=== PATIENT | male | born 1960 | race Caucasian/White ===

== ENCOUNTER 2017-02-01 21:06 | Emergency (ER) | payer OTHER ==
[~2017-02-01] VITALS: Ht 180.3 cm; Wt 93.0 kg
[2017-02-01] MEDS ORDERED: ALLEGRA ALLERG180 MG PO (21:15)
[2017-02-01] MEDS ORDERED: PREVACID 30MG C30 M1 PO (21:16)
[2017-02-01] MEDS ORDERED: LEXAPRO 10 MG T10 MG PO (21:16)
[2017-02-01] MEDS ORDERED: LISINOPRIL10 MG PO (21:16)
[2017-02-01 21:50] LABS: HEMOGLOBIN 15.5 g/dL (14.1-18.0); LYMPH # 2.5 K/mm3 (0.7-4.5); LYMPH % 32.4 % (10-50)
[2017-02-01 22:09] LABS: BUN 13 mg/dL (7-18)
[2017-02-01 22:11] LABS: GFR (ESTIMATED) 69 ML/MIN (>60)
--- NOTE | 2017-02-02 00:37 | Emergency Room Report ---
History of Present Illness Time Seen by [id number] Presenting Problem in Triage Pt arrived:Walked Presenting Problem:C/O EPIGASTRIC PAIN AFTER EATING SUPPER. 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 N Clinical Suspician of Infection? N Mental Status: 1 - Regular (Normal Baseline) Sepsis Risk:Low Sepsis Risk Have you (or family members/close friends) recently traveled outside the [place]? N If Yes, where/when: Have you had exposure to infectious disease within the past month? N TB? Other? Specify: Comment The patient complains of epigastric and chest pain that started after eating at about 8 PM. He has vomited twice. Pain is currently 5/10, it has improved, initially it was 8/10. No radiation. No diarrhea. No fever. He did get sweaty. He says he had the same pain a couple of weeks ago at night he walked around and burped several times and it went away after a couple of hours. He says that years ago he had his gallbladder tested and it sounds as if he had a HIDA scan that showed a poorly functioning gallbladder, but CCK apparently did not cause pain and it was not felt that he needed any treatment. He did not have gallstones. He has a hx of gastroesophageal reflux disease and he takes Prevacid , last taken in the morning. ALLERGIES Coded Allergies: No Known Allergies (02/01/17) Home Medications Reported Medications FEXOFENADINE HCL (Val Allergy) 180 MG PO DAILY Lansoprazole (Prevacid) 30 MG PO DAILY Escitalopram Oxalate (Lexapro 10MG) 10 MG PO DAILY Lisinopril 10 MG PO DAILY History Medical History General CAD? No Angina: No UT: No Hypertension? Yes Hyperlipidemia? No CHF? No DVT? No PE? No COPD? No Asthma? No Anemia? No GERD? Yes Gastric ulcers? No GI Bleed? No Hernia? No Thyroid Problems? No Hypothyroidism? No CVA? No Seizures? No Diabetes? No Renal Insuffiency? No End Stage Renal Disease? No UTI? No Stones? No BPH? No GB Disease: No Nephritic Syndrome? No Asplenia? No Hepatitis? No Sickle Cell Disease? No Arthritis? No Migraines? No Cataracts? No Glaucoma? No MRSA? No HIV? No TB? No Anxiety? Yes Depression? No Cancer? No More? No Immunization Hx DT/Tetanus Unknown Surgical Hx Previous Surgery?N Social History Smoking Hx Smoker: Never Smoker Tobacco: No Alcohol Alcohol: No Review of Systems All Other Systems Reviewed and Negative Constitutional diaphoresis, denies fever Respiratory denies shortness of breath Cardiovascular chest pain Gastrointestinal abdominal pain, denies diarrhea, vomiting Physical Exam Vital Signs Vital Signs Date Time Temp Pulse Resp B/P Pulse O2 O2 Flow FiO2 Ox Delivery Rate 02/02 0315 97.8 54 18 164/90 91 08/02 0248 97.8 54 18 164/90 91 / 0203 97.8 67 18 169/99 95 /02 0202 18 / 0112 97.8 54 18 137/69 95 /02 0106 18 08/02 0049 56 20 156/94 100 08/01 2350 60 20 161/92 99 08/01 2300 97.8 54 20 175/99 98 08/01 2256 56 20 187/70 97 08/01 2131 97.8 63 24 196/49 100 08/01 2108 97.8 63 24 191/116 100 General Appearance normal appearance, WD/WN Eye Exam - bilateral eye normal exam, bilateral eye PERRL, bilateral eye EOMI Ear, Nose, Throat hearing grossly normal, normal ENT inspection Neck normal inspection, non-tender, supple, full range of motion Respiratory Status Yes: trachea midline, chest symmetrical, non tender chest. No: respiratory distress. Lung Sounds bilateral: normal breath sounds, lungs clear. Cardiovascular normal exam, regular rate/rhythm, no peripheral edema, no gallop, no JVD, no murmur, no rub, normal peripheral pulses Peripheral Pulses Pulses normal Yes Gastrointestinal normal bowel sounds, soft, no organomegaly, no pulsatile mass, no guarding, no rebound, tenderness (epigastric) Extremities non-tender, normal range of motion, normal inspection Neurologic alert, hammer repairer II-XII nml as tested, normal exam, oriented x 3 Mental status normal mood/affect Skin intact, normal color, warm/dry Medical Decision Making LABS/Meds/Orders Pt receiving controlled substance in ED? Yes John was queried for this patient? No Reason not queried - emergent pt cond=no time Results/Orders Laboratory Tests 02/02/17 0016: Troponin I < 0.02 02/01/170: Sodium 141, Potassium 3.3 L, Chloride 103, Carbon Dioxide 31, BUN 13, Creatinine 1.1, Estimated Creat Clear 97, Estimated GFR (MDRD) 69, Glucose 91, Calcium 9.7, Total Bilirubin 0.4, AST 37, ALT 34, Alkaline Phosphatase 59, Creatine Kinase 103, CK-MB (CK-2) Rel Index 0.5, CK and CKMB Interp < 0.5, Troponin I < 0.02, Total Protein 8.0, Albumin 4.3, Globulin 3.7 H, Albumin/ Globulin Ratio 1.2, Amylase 98, Lipase 306, WBC 7.7, RBC 4.97, Hgb 15.5, Hct 45.5, MCV 91.6, RDW 13.0, Plt Count 240, MPV 7.3 L, Gran % 60.2, Gran # 4.7, Lymphocytes % 32.4, Monocytes % 5.6, Eosinophils % 1.6, Basophils % 0.2, Lymphocytes # 2.5, Monocytes # 0.4, Eosinophils # 0.1, Basophils # 0.0, PUBS MCHC 34.1, MCH 31.2 02/01/175: WBC Cancelled, RBC Cancelled, Hgb Cancelled, Hct Cancelled, MCV Cancelled, RDW Cancelled, Plt Count Cancelled, MPV Cancelled, Gran % Cancelled, Gran # Cancelled, Lymphocytes % Cancelled, Monocytes % Cancelled, Eosinophils % Cancelled, Basophils % Cancelled, Lymphocytes # Cancelled, Monocytes # Cancelled , Eosinophils # Cancelled, Basophils # Cancelled, PUBS MCHC Cancelled, MCH Cancelled Current Medication Orders Sig/Tonia Start time Last Medication Dose Route Stop Time Status Admin Iopamidol 75 ML ONCE ONE 02/02 200 DCD 02/02 IV 02/02 201 015 Morphine Sulfate 4 MG ONCE ONE 02/02 200 DC 02/02 IV 02/02 201 020 Sodium Chloride 10 ML ONCE ONE 02/02 200 DCD 02/02 IV 02/02 201 0156 Morphine Sulfate 0 .STK-MED ONE 02/02 159 DC .ROUTE Famotidine 0 .STK-MED ONE 02/02 105 DC IV Multi-Ingredient GI 0 .STK-MED ONE 02/02 105 DC Drug PO Sodium Chloride 0 .STK-MED ONE 02/02 105 DC IV Morphine Sulfate 0 .STK-MED ONE 02/03 104 DC .ROUTE Famotidine 20 MG ONCE ONE 02/025 DC 02/02 IV 02/02 46 0105 Morphine Sulfate 4 MG ONCE ONE 02/02 45 DC 02/02 IV 02/02 46 010 Multi-Ingredient GI 60 ML ONCE ONE 02/02 45 DC 02/02 Drug PO 02/02 46 0105 Sodium Chloride 8 ML ONCE ONE 02/02 45 DC 02/02 IV 02/02 46 010 Ondansetron HCl 4 MG ONCE ONE 02/01 2300 DC 02/01 IV 02/01 Ondansetron HCl 0 .STK-MED ONE 02/02 2256 DC .ROUTE Aspirin 324 MG ONCE ONE 02/01 2130 DC 02/01 PO 02/01 Sodium Chloride 10 ML PRN PRN 02/01 2130 DCD IV 02/02 2117 Aspirin 0 .STK-MED ONE 02/01 2119 DC .ROUTE Orders Procedure Date/time Status DIET-NOTHING BY MOUTH 02/[address] ABD & PELVIS W/ CONTRAST 02/[address] ABD/PELVIS REQ 02/02 46 Complete TROPONIN I 02/02 25 Complete ELECTROCARDIOGRAM REQUEST 02/01 2302 Active CBC WITH AUTO DIFF 02/01 2130 Complete CHEST(2 VIEWS-NOT PORTABLE) 02/01 2118 Active IV SALINE LOCK 02/01 2118 Active VENDING MACHINE COIN COLLECTOR 02/01 2118 Active LIPASE 02/01 2118 Complete CARDIAC ENZYMES 02/01 2118 Complete CHEM 12 PROFILE 02/01 2118 Complete AMYLASE 02/01 2118 Complete 12 LEAD EKG-KIERA (INITIAL) 02/01 UNK Active CM/EKG CM/EKG Comments EKG interpreted by Robinson Courtney MD: Rhythm: sinus bradycardia Rate: 55 [place]: normal Ectopy: none Conduction: normal ST Segment Changes: none T Wave Changes: none Q Waves: none No evidence of acute ischemia or injury Baseline artifact present, but I consider the EKG adequate for accurate interpretation. XRAY/CT/US XRAY/CT/US XRAY chest Comment Chest x-ray interpreted by Robinson Courtney M.D. No infiltrate, pneumothorax, pleural effusion, or wide mediastinum. Atelectasis or scar LEFT base. CT abdomen, pelvis Comment CT scan interpreted by [facility] radiologist. Faxed report received and reviewed: Cholelithiasis with stone in the region of the gallbladder neck. Probable pericholecystic infiltrative change. Findings could represent cholecystitis. Recommend RIGHT upper quadrant ultrasound. Progress - 1:50 AM: The patient's pain is currently 1-2/10. He requests another dose of pain medication. 3:00 AM: Recheck patient. He has been sleeping and says pain is 0/10. He would like to be discharged and I feel this is reasonable. Findings are consistent with cholelithiasis with biliary colic. No fever, white blood cell count normal. I do not feel antibiotics are indicated at this time. Departure Departure Disposition DC Home or Self Care(routine) Clinical Impression Primary Impression: Cholelithiasis Qualifiers: Cholelithiasis location: gallbladder Cholecystitis presence: without cholecystitis Biliary obstruction: without biliary obstruction Qualified Code: K80.20 - Calculus of gallbladder without cholecystitis without obstruction Secondary Impressions: Biliary colic Condition STABLE Referrals Lucio Garces MD call today to schedule appointment Kevin Sandhu MD (Family) Patient Instructions DI for Gallstones, Fat-Restricted Diet Additional Instructions Additional instructions for GALLSTONES: Call surgeon today to arrange appointment to be seen as soon as possible. Low- fat diet. Return immediately if intolerable abdominal pain, chest or back pain, vomiting, fever, or jaundice. Prescriptions Current Visit Scripts OXYCODONE HCL/ACETAMINOPHEN (Percocet 5-325 MG Tablet) 1 TAB PO Q6HP PRN pain #10 TAB Ondansetron (Zofran 4MG Odt) 4 MG PO Q8HP PRN NAUSEA AND VOMITING #10 ODT ED Critical Care Critical Care No at 1703
[2017-02-02] MEDS ORDERED: PERCOCET1 TAB PO (03:03)
[2017-02-02] MEDS ORDERED: ZOFRAN ODT4 MG PO (03:03)
[2017-02-02 03:15] VITALS: BP 164/90
--- NOTE | 2017-02-02 07:19 | RADIOLOGY REPORT PS360 ---
CHEST(2 VIEWS-NOT PORTABLE) COMPARISON: None HISTORY: Chest pain TECHNIQUE: PA and lateral chest FINDINGS: The lung salmeron are fairly well-expanded and appear clear of infiltrate. There is mild generalized cardio megaly with aortic tortuosity but there is no evidence of failure. There are calcified left hilar nodes. IMPRESSION: Mild cardio megaly, no acute chest pathology noted
--- NOTE | 2017-02-02 07:28 | RADIOLOGY REPORT PS360 ---
CT ABD PELVIS W/WO CONTRAST COMPARISON: None HISTORY: ] Quadrant pain. TECHNIQUE: Multiaxial scans obtained from hemidiaphragms the pelvic floor and were performed without IV and with IV contrast. .. Sagittal coronal reformats were evaluated as well. FINDINGS: The lower lung salmeron are clear. There is mild generalized cardio megaly. The stomach is distended with ingested food particles. There are 2-3 tiny hypodense lesions within the liver likely hepatic cysts. The pancreas is normal. The gallbladder is mildly hydropic and there are few tiny gallstones layering along the dependent wall and in addition there is a 7 mm calculus at the neck of the gallbladder. The adrenal glands are normal. The kidneys are normal in size and show symmetrical function both appearing normal. The small bowel is normal. The appendix is normal. There are scattered stool throughout the colon. The urinary bladder is distended, the prostate is upper limits normal in size. IMPRESSION: Cholelithiasis the largest of the gallbladder calculi situated within the neck of the gallbladder. I basically agree the [facility] report
--- OUTSIDE RECORDS SUMMARY | 2017-02-04 18:47 | External Medical Summary Rpt ---
Author Author ALLYSSA Address Unknown Phone [email or web address] Purpose Continuity of Care Document - 02-01-2017 through 2016 Problems Code Diagnosis DOS Provider Status K80.20 CALCULUS OF GALLBLADDER W/O CHOLECYSTIT IS W/O OBSTRUCTION K80.50 CALCULUS OF BILE DUCT W/O CHOLANGITIS OR CHOLECYST W/O OBST
--- OUTSIDE RECORDS SUMMARY | 2017-02-04 18:47 | External Medical Summary Rpt ---
Author Author ALLYSSA Address Unknown Phone [email or web address] Purpose Continuity of Care Document - 02-01-2017 through 2016 Problems Code Diagnosis DOS Provider Status K80.20 CALCULUS OF GALLBLADDER W/O CHOLECYSTIT IS W/O OBSTRUCTION K80.50 CALCULUS OF BILE DUCT W/O CHOLANGITIS OR CHOLECYST W/O OBST
--- OUTSIDE RECORDS SUMMARY | 2017-02-04 18:47 | External Medical Summary Rpt ---
Author Author [employer] Organization [employer] Address Unknown Phone Unavailable Purpose Continuity of Care Document - through 2016
--- OUTSIDE RECORDS SUMMARY | 2017-02-04 18:47 | External Medical Summary Rpt ---
Demographics Preferred Language Chinese Marital Status Unknown Islam Affiliation Unknown Race Unknown Ethnic Group Unknown Author Author , ALLYSSA SPIVEY Address Unknown Phone Immunization Unable to retrieve immunization data due to connection failure with Immunization Registry. Please try again later.
--- OUTSIDE RECORDS SUMMARY | 2017-02-04 18:47 | External Medical Summary Rpt ---
Demographics Preferred Language Chinese Marital Status Unknown Samaritan Affiliation Unknown Race Unknown Ethnic Group Unknown Author Author , ALLYSSA SPIVEY Address Unknown Phone Immunization Unable to retrieve immunization data due to connection failure with Immunization Registry. Please try again later.
[2017-02-06] MEDS ORDERED: LEVAQUIN500 MG PO (03:23)
== END 2017-02-02 03:16 | disposition home or self-care (01) ==
LOC: ER 21:06
PROVIDERS: Emergency Medicine
DX: K80.20 Calculus of gallbladder without cholecystitis without obstruction (principal); I10 Essential (primary) hypertension; K21.9 Gastro-esophageal reflux disease without esophagitis
CPT/HCPCS: J2405; Q9967

== ENCOUNTER → 2017-02-07 | Outpatient (CLI) | payer OTHER ==
[~2017-02-07] MED LIST: ALLEGRA ALLERG180 MG PO; HYDROCODONE/APA1 TA8 PO; LEVAQUIN500 MG PO; LEXAPRO 10 MG T10 MG PO; LISINOPRIL10 MG PO; PERCOCET1 TAB PO; PREVACID 30MG C30 M1 PO; ZOFRAN ODT4 MG PO
--- NOTE | 2017-02-07 10:23 | RADIOLOGY REPORT PS360 ---
US RUQ-(ABD LTD)1ORGAN/QUAD/FU HISTORY: RUQ PAIN, NAUSEA ORDERING PHYSICIAN: Lucio Garces MD PATIENT AGE: 56 years COMPARISON: CT of 02/02/2017 FINDINGS: PANCREAS:Unremarkable. No obvious mass or abnormal fluid collection. No ductal dilatation LIVER:No focal liver lesions demonstrated. Homogeneous echogenicity. No intrahepatic biliary ductal dilatation evident RIGHT KIDNEY:Unremarkable. Normal size and echogenicity. No hydronephrosis GALLBLADDER: There are small gallstones noted. Low-level echoes are present within the gallbladder consistent with sludge. Gallbladder wall is mildly thickened measuring up to 4 mm. No pericholecystic fluid or biliary dilatation. IMPRESSION: Cholelithiasis with gallbladder sludge and mildly thickened gallbladder wall
== END ==
LOC: RAD 09:20
DX: R10.13 Epigastric pain (principal); R10.11 Right upper quadrant pain; R11.0 Nausea

== ENCOUNTER 2017-02-09 09:29 | Inpatient (IN) | payer OTHER ==
[2017-02-09] VITALS (15 sets, daily range): BP systolic 112–145; BP diastolic 61–88
[~2017-02-09] VITALS: Ht 180.3 cm; Wt 92.6 kg
[~2017-02-09 09:29] MED LIST changes: -HYDROCODONE/APA1 TA8 PO
--- NOTE | 2017-02-09 14:13 | Operative Note ---
Surgeon/Diagnoses Surgeon/Tuber Machine Operator(s) Date of procedure: 02/09/17 Surgeon: Lucio Garces Diagnoses Pre-op diagnosis: Cholecystitis with cholelithiasis Post-op diagnosis Acute cholecystitis with cholelithiasis Procedure Procedure Procedure: Laparoscopic cholecystectomy Indications: FRANCIS EGAN is a 56 year-old Male with a history of abdominal pain. He is a pleasant 56-year-old white male originally referred from the emergency department for gallbladder whom I had seen in the office on Tuesday02/04/17. He states that about 8 or 10 years ago he had similar symptoms and there was concern for possible gallbladder disease. He apparently had undergone ultrasound followed by HIDA scan to outside facility in [place]. He states that he had nonfunctioning gallbladder but was told this was not the issue. His symptoms have been relatively minor until recently. Last week he had eaten [place] food and before leaving the restaurant had severe sharp chest and epigastric pain. He states that he thought he was having a heart attack. He presented to the emergency department and underwent rule out for cardiac etiology. He had a CT scan which reveals findings of gallstones. Patient was able to be managed as an outpatient and had been given prescription for Percocet and Zofran. He had some ongoing nausea. He had been afraid to eat. He has had some pain but it has subsided somewhat. After his seen him on Tuesday I ordered a gallbladder ultrasound to be done the morning of 02/07/17 and he was to present to the office following that. Patient states that over the weekend he had developed fever and presented to the emergency department where he was administered antibiotics and given a prescription. He states that he had some hallucinations which he attributes to the combination of the pain medication and the fever. His gallbladder ultrasound revealed gallstones with sludge and debris with minimal gallbladder wall thickening to 4 mm and normal common bile duct. Plan was made to proceed with cholecystectomy. Findings: Patient had a profoundly severe acute cholecystitis with likely some hydropic abscessed gallbladder and necrosis of the gallbladder. Gallbladder was adherent to the anterior abdominal wall but also completely obscured with omental adhesions and somewhat intrahepatic with necrosis. Procedure Description: Consent was obtained and patient was taken to the operating room. He was given preoperative intravenous antibiotics. In the operating room he was placed in a supine position. Gen. anesthesia was induced via endotracheal tube. Abdomen was prepped and draped in standard surgical fashion. Subumbilical skin incision was made and while performing abdominal wall lifted the Veress needle was inserted. CO2 pneumoperitoneum was achieved to 15 mmHg. 11 mm optical trocar was inserted at the umbilicus. Intraperitoneal contents were visualized. He was positioned in reverse Trendelenburg with LEFT side down. A couple 5 mm trochars were inserted in the RIGHT upper abdomen. 10 mm trocar was inserted in the epigastrium. There was an intense inflammatory response in the RIGHT upper quadrant. Initially gallbladder could not be identified. Omentum was swept inferiorly and there was acute on chronic inflammatory adhesions obscuring the gallbladder. Ultimately the gallbladder was identified and grasped retracted anteriorly. Omentum was cleaned free from the gallbladder but the gallbladder was markedly inflamed and there was acute on chronic inflammatory response which was quite intense. There is generalized oozing due to the profound inflammation. There was extreme inflammation around the selin hepatis and identification of structures was difficult. Ultimately the cystic duct was able to be identified after some prolonged dissection. It was isolated and multiply clipped and divided. Cystic artery was carefully coagulated with Emerson ultrasonic harmonic john and divided. Dissection was begun dissecting the gallbladder free from the liver bed. There was some unavoidable spillage of bile from the gallbladder due to its necrosis in this appeared to be somewhat purulent and consistent with hydrops of the gallbladder. It was suctioned free. Gallbladder was densely adherent and somewhat embedded into the liver and due to its profound thickening and inflammation dissection was carried out using the hook electrocautery. Ultimately the gallbladder was dissected free from the liver. It was placed within an Endo Catch retrieval device and removed from the peritoneal cavity via the umbilical trocar site which required appreciable extension of the fascial and skin incision for delivery. Gallbladder fossa and perihepatic space were irrigated with copious amounts of saline and aspirated until clear. There appeared to be good hemostasis. A 10 mm UNIQUE drain was placed into the gallbladder fossa and subhepatic space and exited through the RIGHT lateral abdominal trocar site where it was secured with a 2-0 nylon horizontal mattress suture. Trochars are then removed as CO2 pneumoperitoneum was evacuated. Fascia at the umbilicus was closed with multiple interrupted 0 Vicryl sutures. Local anesthetic was infiltrated. Skin incisions are closed with 4-0 Monocryl subcuticular fashion. Steri-Strips and clean dry sterile dressings were applied. EBL (ml): 100 Anesthesia: GETA Complications: None immediately apparent Specimens: Gallbladder and contents Disposition Disposition: To PACU Plan will be for admission due to the severe acute cholecystitis at 1418
--- NOTE | 2017-02-09 14:16 | Anesthesia Record ---
Anesthesia Record Part I Total IV fluids: 2200 EBL (ml): 100 Urine Output: 0 B/P: 148/79 % SaO2: 95 Pulse: 79 Resps: 16 Temp: 97.9 Patient is: Drowsy, Nasal O2, Stable Stable to PACU at: 1410 at 1416
--- NOTE | 2017-02-09 14:17 | Anesthesia Record ---
Anesthesia Record Part II Discharge time: 1440 Destination: Second Floor PACU nurse assessment review? Yes Patient is: Stable Anesthesia complications? No at 1411
[2017-02-10] VITALS (7 sets, daily range): BP systolic 117–143; BP diastolic 69–89
--- NOTE | 2017-02-10 09:07 | SURGEON PROGRESS NOTE ---
Subjective data Subjective data: FRANCIS EGAN is a 56 M .Patient denies complaint of nausea and vomitting.He reports his last pain level as 4 on a 0-10 pain scale. Patient feels better this morning than he did last night. Taking some clear liquids. No flatus or bowel movements. Labs not drawn. Assessment findings Assessment Exam General appearance: normal appearance, alert ABD: distended Comment: Abdomen distended with hypoactive bowel sounds. UNIQUE drain serosanguineous. Patient plan Plan: Advance diet Additional data: Try some full liquids cautiously due to findings of post-operative ileus. Check labs. Continue antibiotics for now. at 0906
[2017-02-10 10:18] LABS: LYMPH # 0.7 K/mm3 (0.7-4.5); LYMPH % 7.2 % (10-50)
[2017-02-10 10:25] LABS: HEMOGLOBIN 12.1 g/dL (14.1-18.0)
[2017-02-10 10:47] LABS: NEUTROPHILS 92 % (42-76)
--- NOTE | 2017-02-10 13:07 | SURGEON PROGRESS NOTE ---
Subjective data Subjective data: Called by nursing due to hypoxia (84% while resting). He states that he does not feel SOA and is "fine". He is a chronic cPAP patient and states that he "uses it always at night and sometimes during the day". Objective data Vitals,I&O,and Labs: Vital signs, intake and output,and available lab data for the last 24 hours is as noted below. Vital Signs Date Time Temp Pulse Resp B/P Pulse O2 O2 Flow FiO2 Ox Delivery Rate 02/10 0847 18 02/10 0753 98.1 90 18 128/72 90 ROOM AIR 02/10 0507 20 02/10 0432 100.5 105 20 140/89 86 ROOM AIR 08/ 2353 98.7 94 20 145/88 90 ROOM AIR 08/ 2338 20 08/ 2215 98.3 83 18 130/80 96 08/ 2115 98.1 86 18 135/81 96 08/ 2101 20 08/ 2042 98.9 81 20 135/86 92 /2015 98.9 81 20 135/86 92 ROOM AIR 08/2014 98.2 84 18 136/80 96 08/09 1914 98.3 85 18 138/81 92 08/09 1815 98.3 74 18 125/78 95 08/09 1745 98.4 75 18 124/70 91 08/09 1715 98.5 81 18 125/61 94 08/09 1652 76 18 134/83 94 08/09 1650 16 08/09 1645 98.4 83 18 136/76 93 08/09 1636 97.9 08/09 1615 98.4 67 16 119/63 91 08/09 1600 98.5 82 16 124/75 92 08/09 1545 98.5 70 16 124/75 91 08/09 1530 98.3 68 16 112/69 91 08/09 1530 98.3 68 16 112/69 91 ROOM AIR 08/09 1516 97.9 61 16 128/73 97 ROOM AIR 08/09 1512 97.9 64 12 128/76 97 ROOM AIR 08/09 1502 97.9 73 22 127/88 98 OXYGEN 08/09 1454 26 08/09 1454 97.9 63 26 136/81 96 OXYGEN 08/09 1449 26 08/09 1449 97.9 66 26 134/79 97 OXYGEN 08/09 1440 97.9 67 25 140/79 97 OXYGEN 08/09 1430 97.9 74 18 144/76 96 OXYGEN 08/09 1420 97.9 76 12 144/87 97 OXYGEN 08/09 1416 97.9 79 16 148/79 95 08/09 1410 97.9 79 16 148/79 95 OXYGEN 08/09 1500 08/09 2300 08/10 0700 Intake Total 1250 1551 Output Total 50 Balance 1200 1551 Intake, IV 50 1551 Intake, Oral 1200 Intake, Tube 0 Irrigant Output, 0 Emesis Output, 0 Estimated Blood Loss Output, Other 50 Output, Urine 0 Patient 92.988 kg 92.562 kg Weight Laboratory Tests Test Result Date Time Chemistry Sodium (mmoL/L) 138 08/10 1010 Potassium (mmoL/L) 3.9 08/10 1010 Chloride (mmoL/L) 102 08/10 1010 Carbon Dioxide (mmoL/L) 31 08/10 1010 BUN (mg/dL) 6 08/10 1010 Creatinine (mg/dL) 1.0 08/10 1010 Estimated Creat Clear (ML/MIN) 107 08/10 1010 Estimated GFR (MDRD) (ML/MIN) 77 08/10 1010 Glucose (mg/dL) 126 08/10 1010 Calcium (mg/dL) 8.3 08/10 1010 Total Bilirubin (mg/dL) 0.4 08/10 1010 AST (U/L) 56 08/10 1010 ALT (U/L) 47 08/10 1010 Alkaline Phosphatase (U/L) 93 08/10 1010 Total Protein (gm/dL) 6.3 08/10 1010 Albumin (gm/dL) 2.5 08/10 1010 Globulin (gm/dL) 3.8 08/10 1010 Albumin/Globulin Ratio 0.7 08/10 1010 Hematology WBC (K/MM3) 9.3 08/10 1010 RBC (M/mm3) 3.97 08/10 1010 Hgb (g/dL) 12.1 08/10 1010 Hct (%) 37.1 08/10 1010 MCV (fl) 93.4 08/10 1010 RDW (%) 12.5 08/10 1010 Plt Count (K/mm3) 267 08/10 1010 MPV (fl) 7.6 08/10 1010 Gran % (%) 90.9 08/10 1010 Gran # (K/mm3) 8.4 08/10 1010 Total Counted (#CELLS) 100 08/10 1010 Lymphocytes % (%) 7.2 08/10 1010 Monocytes % (%) 1.7 08/10 1010 Eosinophils % (%) 0.1 08/10 1010 Basophils % (%) 0.1 08/10 1010 Neutrophils (%) 92 08/10 1010 Lymphocytes (Manual) (%) 8 08/10 1010 Lymphocytes # (K/mm3) 0.7 08/10 1010 Monocytes # (K/mm3) 0.2 08/10 1010 Eosinophils # (K/mm3) 0.0 08/10 1010 Basophils # (K/MM3) 0.0 08/10 1010 RBC/WBC/PLT Morphology NORMAL 08/10 1010 Platelet Estimate SLIGHT INCREASE 08/10 1010 PUBS MCHC (g/dl) 32.7 08/10 1010 Immunology MCH (pg) 30.6 08/10 1010 Assessment findings Assessment Exam General appearance: no acute distress Respiratory: good air movement Patient plan Diagnoses: hypoxia - improved...not SOA chronic lung disease - chronic cPAP patient Plan: cPAP, O2 as needed at 1307
--- OUTSIDE RECORDS SUMMARY | 2017-02-10 15:18 | External Medical Summary Rpt ---
Author Author ALLYSSA Strickland, OMARITHOMAS [employer] Organization [employer] Address Unknown Phone Unavailable Results Amylase [Enzymatic activity/volume] in Serum or Plasma Observa Value Referen Units Interpr Notes Date tion ce etation Range Amylase 25 - 115 U/L Normal No Feb 05 [Enzymati informati 2016 c on in 10:40 PM activity/ source volume] data in Serum or Plasma Lipase [Enzymatic activity/volume] in Serum or Plasma Observa Value Referen Units Interpr Notes Date tion ce etation Range Lipase 73 - 393 U/L Normal No Feb 05 [Enzymati informati 2016 c on in 10:40 PM activity/ source volume] data in Serum or Plasma Lactate [Moles/volume] in Blood Observa Value Referen Units Interpr Notes Date ti ce etation Range Lactate 0.4 - 2.0 mmol/L Normal No Feb 05 [Moles/vo informati 2016 lume] in on in 10:40 PM Blood source data CBC W Auto Differential panel in Blood Observa Value Referen Units Interpr Notes Date ti ce etation Range Basophils 0 - 0.2 K/MM3 Normal No Feb 052016 [#/volume on in 10:40 PM ] in source Blood by data Automated count Basophils 0.1 - 2.0 % Normal No Feb 052016 leukocyte on in 10:40 PM s in source Blood by data Automated count Eosinophi 0.0 - 0.4 K/mm3 Normal No Feb 05 ls 2016 [#/volume on in 10:40 PM ] in source Blood by data Automated count Eosinophi 0.1 - % Normal No Feb 05 ls/100 12.0 2016 leukocyte on in 10:40 PM s in source Blood by data Automated count Granulocy 1.3 - 8.0 K/mm3 High No Feb 05 cliff inform2016 [#/volume on in 10:40 PM ] in source Blood by data Automated count Granulocy 37.0 - % High No Feb 05 cliff/100 80.0 2016 leukocyte on in 10:40 PM s in source Blood by data Automated count Hematocri 42.0 - % Low No Feb 05 t [Volume 52.0 2016 on in 10:40 PM Fraction] source of Blood data Hemoglobi 14.1 - g/dL Normal No Feb 05 n 18.0 inform2016 [Mass/vol on in 10:40 PM ume] in source Blood data Lymphocyt 0.7 - 4.5 K/mm3 Normal No Feb 05 es 2016 [#/volume on in 10:40 PM ] in source Unspecifi data ed specimen by Automated count Lymphocyt 10 - 50 % Low No Feb 05 es inform2016 [#/volume on in 10:40 PM ] in source Unspecifi data ed specimen by Automated count Erythrocy 27 - 31.2 pg High No Feb 05 te mean 2016 corpuscul on in 10:40 PM ar source hemoglobi data n [Entitic mass] Erythrocy 31.8 - g/dl Normal No Feb 05 te mean 35.4 2016 corpuscul on in 10:40 PM ar source hemoglobi data n concentra tion [Mass/vol ume] by Automated count Erythrocy 82.2 - fl Normal No Feb 05 te mean 97.8 2016 corpuscul on in 10:40 PM ar volume source [Entitic data volume] by Automated count Monocytes 0.1 - 1.0 K/mm3 Normal No Feb 052016 [#/volume on in 10:40 PM ] in source Blood by data Automated count Monocytes 1.7 - 9.3 % Normal No Feb 05 /100 inform 2017 leukocyte on in 10:40 PM s in source Blood by data Automated count Platelet 7.4 - fl Normal No Feb 05 mean 10.4 2016 volume on in 10:40 PM [Entitic source volume] data in Blood by Automated count Platelets 142 - 424 K/mm3 Normal No Feb 052016 [#/volume on in 10:40 PM ] in source Blood data Erythrocy 4.6 - 6.2 M/mm3 Low No Feb 05 cliff 2016 [#/volume on in 10:40 PM ] in source Amniotic data fluid Erythrocy 11.5 - % Normal No Feb 05 te 17.5 2016 distribut on in 10:40 PM ion width source [Entitic data volume] by Automated count Leukocyte 4.8 - K/MM3 High No Feb 05 s 10.8 informati 2016 [#/volume on in 10:40 PM ] in source Blood data Comprehensive metabolic 2000 panel in Serum or Plasma Observa Value Referen Units Interpr Notes Date tion ce etation Range Albumin/G 1.1 - 1.8 No Low No Feb 05 lobulin informati informati 2016 [Mass on in on in 10:40 PM ratio] in source source Serum or data data Plasma Albumin 3.4 - 5.0 gm/dL Low No Feb 05 [Mass/vol informati 2016 ume] in on in 10:40 PM Serum or source Plasma data Alkaline 46 - 116 U/L High No Feb 05 phosphata informati 2016 se on in 10:40 PM [Enzymati source c data activity/ volume] in Serum or Plasma Bilirubin 0.2 - 1.0 mg/dL Normal No Feb 05 .total informati 2016 [Mass/vol on in 10:40 PM ume] in source Serum or data Plasma Urea 7 - 18 mg/dL Normal No Feb 05 nitrogen informati 2016 [Mass/vol on in 10:40 PM ume] in source Serum or data Plasma Calcium 8.5 - mg/dL Normal No Feb 05 [Mass/vol 10.1 informati 2016 ume] in on in 10:40 PM Serum or source Plasma data Chloride 98 - 107 mmoL/L Normal No Feb 05 [Moles/vo informati 2016 lume] in on in 10:40 PM Serum or source Plasma data Carbon 21.0 - mmoL/L Normal No Feb 05 dioxide, 32.0 informati 2016 total on in 10:40 PM [Moles/vo source lume] in data Serum or Plasma Creatinin 0.70 - mg/dL Normal No Feb 05 e 1.30 informati 2016 [Mass/vol on in 10:40 PM ume] in source Serum or data Plasma Creatinin 50 - 200 ML/MIN Normal No Feb 05 e renal informati 2017 clearance on in 10:40 PM source predicted data by Cockcroft -Gault formula Estimated >60 ML/MIN No REFERENCE Feb 05 informati RANGE: 2017 glomerula on in >60 10:40 PM r source ML/MIN/1. filtratio data 73 SQUARE n rate METERSIf (GF this patient is -A merican, then multiply theresult by 1.210. Globulin 1.3 - 3.2 gm/dL High No Feb 05 [Mass/vol informati 2016 ume] in on in 10:40 PM Serum source data Glucose 74 - 106 mg/dL High No Feb 05 [Mass/vol informati 2016 ume] in on in 10:40 PM Serum or source Plasma data Potassium 3.5 - 5.1 mmoL/L Normal No Feb 052016 [Moles/vo on in 10:40 PM lume] in source Serum or data Plasma Sodium 136 - 145 mmoL/L Normal Feb 05 [Moles/vo informati 2016 lume] in on in 10:40 PM Serum or source Plasma data Aspartate 15 - 37 U/L High No Feb 052016 aminotran on in 10:40 PM sferase source [Enzymati data c activity/ volume] in Serum or Plasma Alanine 12 - 78 U/L Normal No Feb 05 aminotran 2016 sferase on in 10:40 PM [Enzymati source c data activity/ volume] in Serum or Plasma Protein 6.4 - 8.2 gm/dL Normal No Feb 05 [Mass/vol informati 2016 ume] in on in 10:40 PM Serum or source Plasma data CBC W Auto Differential panel in Blood Observa Value Referen Units Interpr Notes Date tion ce etation Range Basophils 0 - 0.2 K/MM3 Normal No Feb 01 informati 2016 9:30 [#/volume on in PM ] in source Blood by data Automated count Basophils 0.1 - 2.0 % Normal No Feb 01 informati 2016 9:30 leukocyte on in PM s in source Blood by data Automated count Eosinophi 0.0 - 0.4 K/mm3 Normal No Feb 01 ls ati 2016 9:30 [#/volume on in PM ] in source Blood by data Automated count Eosinophi 0.1 - % Normal Feb 01 ls/100 12.0 informati 2016 9:30 leukocyte on in PM s in source Blood by data Automated count Granulocy 1.3 - 8.0 K/mm3 Normal No Feb 01 cliff ati 2016 9:30 [#/volume on in PM ] in source Blood by data Automated count Granulocy 37.0 - % Normal No Feb 01 cliff/100 80.0 informati 2016 9:30 leukocyte on in PM s in source Blood by data Automated count Hematocri 42.0 - % Normal Feb 01 t [Volume 52.0 informati 2017 9:30 on in PM Fraction] source of Blood data Hemoglobi 14.1 - g/dL Normal No Feb 01 n 18.0 informati 2017 9:30 [Mass/vol on in PM ume] in source Blood data Lymphocyt 0.7 - 4.5 K/mm3 Normal No Feb 01 es informati 2017 9:30 [#/volume on in PM ] in source Unspecifi data ed specimen by Automated count Lymphocyt 10 - 50 % Normal No Feb 01 es informati 2016 9:30 [#/volume on in PM ] in source Unspecifi data ed specimen by Automated count Erythrocy 27 - 31.2 pg Normal No Feb 01 te mean informati 2017 9:30 corpuscul on in PM ar source hemoglobi data n [Entitic mass] Erythrocy 31.8 - g/dl Normal No Feb 01 te mean 35.4 informati 2016 9:30 corpuscul on in PM ar source hemoglobi data n concentra tion [Mass/vol ume] by Automated count Erythrocy 82.2 - fl Normal No Feb 01 te mean 97.8 informati 2016 9:30 corpuscul on in PM ar volume source [Entitic data volume] by Automated count Monocytes 0.1 - 1.0 K/mm3 Normal No Feb 01 informati 2017 9:30 [#/volume on in PM ] in source Blood by data Automated count Monocytes 1.7 - 9.3 % Normal No Feb 1 /100 informati 2017 9:30 leukocyte on in PM s in source Blood by data Automated count Platelet 7.4 - fl Low No Feb 01 mean 10.4 informati 2016 9:30 volume on in PM [Entitic source volume] data in Blood by Automated count Platelets 142 - 424 K/mm3 Normal No Feb 01 informati 2017 9:30 [#/volume on in PM ] in source Blood data Erythrocy 4.6 - 6.2 M/mm3 Normal No Feb 01 cliff informati 2017 9:30 [#/volume on in PM ] in source Amniotic data fluid Erythrocy 11.5 - % Normal No Feb 01 te 17.5 informati 2017 9:30 distribut on in PM ion width source [Entitic data volume] by Automated count Leukocyte 4.8 - K/MM3 Normal No Feb 01 s 10.8 informati 2016 9:30 [#/volume on in PM ] in source Blood data CBC W Auto Differential panel in Blood Observa Value Referen Units Interpr Notes Date tion ce etation Range Basophils 0 - 0.2 K/MM3 Normal No Feb 01 informati 2016 9:15 [#/volume on in PM ] in source Blood by data Automated count Basophils 0.1 - 2.0 % Normal No Feb 01 / informati 2016 9:15 leukocyte on in PM s in source Blood by data Automated count Eosinophi 0.0 - 0.4 K/mm3 Normal No Feb 01 ls informati 2016 9:15 [#/volume on in PM ] in source Blood by data Automated count Eosinophi 0.1 - % Normal No Feb 01 ls/100 12.0 informati 2016 9:15 leukocyte on in PM s in source Blood by data Automated count Granulocy 1.3 - 8.0 K/mm3 Normal No Feb 01 cliff informati 2017 9:15 [#/volume on in PM ] in source Blood by data Automated count Granulocy 37.0 - % Normal No Feb 01 cliff/100 80.0 informati 2016 9:15 leukocyte on in PM s in source Blood by data Automated count Hematocri 42.0 - % Low No Feb 01 t [Volume 52.0 informati 2017 9:15 on in PM Fraction] source of Blood data Hemoglobi 14.1 - g/dL Low No Feb 01 n 18.0 informati 2017 9:15 [Mass/vol on in PM ume] in source Blood data Lymphocyt 0.7 - 4.5 K/mm3 Normal No Feb 01 es informati 2017 9:15 [#/volume on in PM ] in source Unspecifi data ed specimen by Automated count Lymphocyt 10 - 50 % Normal No Feb 01 es informati 2016 9:15 [#/volume on in PM ] in source Unspecifi data ed specimen by Automated count Erythrocy 27 - 31.2 pg Normal No Feb 01 te mean informati 2016 9:15 corpuscul on in PM ar source hemoglobi data n [Entitic mass] Erythrocy 31.8 - g/dl Normal No Feb 01 te mean 35.4 informati 2016 9:15 corpuscul on in PM ar source hemoglobi data n concentra tion [Mass/vol ume] by Automated count Erythrocy 82.2 - fl Normal No Feb 01 te mean 97.8 informati 2016 9:15 corpuscul on in PM ar volume source [Entitic data volume] by Automated count Monocytes 0.1 - 1.0 K/mm3 Normal No Feb 01 informati 2016 9:15 [#/volume on in PM ] in source Blood by data Automated count Monocytes 1.7 - 9.3 % Normal No Feb 01 informati 2016 9:15 leukocyte on in PM s in source Blood by data Automated count Platelet 7.4 - fl Low No Feb 01 mean 10.4 informati 2016 9:15 volume on in PM [Entitic source volume] data in Blood by Automated count Platelets 142 - 424 K/mm3 Normal No Feb 01 informati 2016 9:15 [#/volume on in PM ] in source Blood data Erythrocy 4.6 - 6.2 M/mm3 Low No Feb 01 cliff informati 2016 9:15 [#/volume on in PM ] in source Amniotic data fluid Erythrocy 11.5 - % Normal No Feb 01 te 17.5 informati 2016 9:15 distribut on in PM ion width source [Entitic data volume] by Automated count Leukocyte 4.8 - K/MM3 Normal No Feb 01 s 10.8 informati 2016 9:15 [#/volume on in PM ] in source Blood data CBC W Auto Differential panel in Blood Observa Value Referen Units Interpr Notes Date tion ce etation Range Basophils 0 - 0.2 K/MM3 Normal No Feb 01 inform 2017 9:15 [#/volume on in PM ] in source Blood by data Automated count Basophils 0.1 - 2.0 % Normal No Feb 01 informati 2016 9:15 leukocyte on in PM s in source Blood by data Automated count Eosinophi 0.0 - 0.4 K/mm3 Normal No Feb 01 ls informati 2016 9:15 [#/volume on in PM ] in source Blood by data Automated count Eosinophi 0.1 - % Normal No Feb 01 ls/100 12.0 informati 2016 9:15 leukocyte on in PM s in source Blood by data Automated count Granulocy 1.3 - 8.0 K/mm3 Normal No Feb 01 cliff informati 2016 9:15 [#/volume on in PM ] in source Blood by data Automated count Granulocy 37.0 - % Normal No Feb 01 cliff/100 80.0 informati 2016 9:15 leukocyte on in PM s in source Blood by data Automated count Hematocri 42.0 - % Low No Feb 01 t [Volume 52.0 informati 2017 9:15 on in PM Fraction] source of Blood data Hemoglobi 14.1 - g/dL Low No Feb 01 n 18.0 informati 2017 9:15 [Mass/vol on in PM ume] in source Blood data Lymphocyt 0.7 - 4.5 K/mm3 Normal No Feb 01 es informati 2017 9:15 [#/volume on in PM ] in source Unspecifi data ed specimen by Automated count Lymphocyt 10 - 50 % Normal No Feb 01 es informati 2016 9:15 [#/volume on in PM ] in source Unspecifi data ed specimen by Automated count Erythrocy 27 - 31.2 pg Normal No Feb 01 te mean informati 2017 9:15 corpuscul on in PM ar source hemoglobi data n [Entitic mass] Erythrocy 31.8 - g/dl Normal No Feb 01 te mean 35.4 informati 2017 9:15 corpuscul on in PM ar source hemoglobi data n concentra tion [Mass/vol ume] by Automated count Erythrocy 82.2 - fl Normal No Feb 01 te mean 97.8 informati 2017 9:15 corpuscul on in PM ar volume source [Entitic data volume] by Automated count Monocytes 0.1 - 1.0 K/mm3 Normal No Feb 01 informati 2017 9:15 [#/volume on in PM ] in source Blood by data Automated count Monocytes 1.7 - 9.3 % Normal No Feb 1 /100 informati 2017 9:15 leukocyte on in PM s in source Blood by data Automated count Platelet 7.4 - fl Low No Feb 01 mean 10.4 informati 2017 9:15 volume on in PM [Entitic source volume] data in Blood by Automated count Platelets 142 - 424 K/mm3 Normal No Feb 01 informati 2017 9:15 [#/volume on in PM ] in source Blood data Erythrocy 4.6 - 6.2 M/mm3 Low No Feb 01 cliff informati 2017 9:15 [#/volume on in PM ] in source Amniotic data fluid Erythrocy 11.5 - % Normal No Feb 01 te 17.5 informati 2017 9:15 distribut on in PM ion width source [Entitic data volume] by Automated count Leukocyte 4.8 - K/MM3 Normal No Feb 01 s 10.8 informati 2017 9:15 [#/volume on in PM ] in source Blood data
--- OUTSIDE RECORDS SUMMARY | 2017-02-10 15:18 | External Medical Summary Rpt ---
Demographics Preferred Language Mongolian Marital Status Unknown Holiness Affiliation Unknown Race Unknown Ethnic Group Unknown Author Author ALLYSSA Address Unknown Phone Immunization No patient found.
--- OUTSIDE RECORDS SUMMARY | 2017-02-10 15:18 | External Medical Summary Rpt ---
Author Author ALLYSSA Address Unknown Phone [email or web address] Purpose Continuity of Care Document - 02-01-2017 through 2016
--- OUTSIDE RECORDS SUMMARY | 2017-02-10 15:18 | External Medical Summary Rpt ---
Demographics Preferred Language Sinhala Marital Status Unknown Pentecostal Affiliation Unknown Race Unknown Ethnic Group Unknown Author Author ALLYSSA Address Unknown Phone Immunization No patient found.
--- OUTSIDE RECORDS SUMMARY | 2017-02-10 15:18 | External Medical Summary Rpt ---
Author Author ALLYSSA Address Unknown Phone [email or web address] Purpose Continuity of Care Document - 02-01-2017 through 2016
[2017-02-11 04:47] VITALS: BP 142/83
[2017-02-11 06:57] LABS: HEMOGLOBIN 11.4 g/dL (14.1-18.0); LYMPH # 0.9 K/mm3 (0.7-4.5)
[2017-02-11 08:00] VITALS: BP 145/91
[2017-02-11] MEDS ORDERED: HYDROCODONE/APA1 TA8 PO (08:23)
--- NOTE | 2017-02-11 08:24 | SURGEON PROGRESS NOTE ---
Subjective data Subjective data: FRANCIS EGAN is a 56 M .Patient denies complaint of nausea and vomitting.He reports his last pain level as 0 on a 0-10 pain scale. No issues overnight. Feels better. Tolerating full liquids. Assessment findings Assessment Exam General appearance: normal appearance, alert ABD: soft Patient plan Plan: DC Additional data: Remove UNIQUE and DC to home. at 0824
--- NOTE | 2017-02-11 08:27 | DISCHARGE SUMMARY STANDARD ---
Demographics Admit date: 02/09/17 Discharge date: 02/11/17 History of present illness History of present illness FRANCIS EGAN is a 56 year-old Male with a history of abdominal pain. He is a pleasant 56-year-old white male originally referred from the emergency department for gallbladder whom I had seen in the office on Tuesday02/04/17. He states that about 8 or 10 years ago he had similar symptoms and there was concern for possible gallbladder disease. He apparently had undergone ultrasound followed by HIDA scan to outside facility in [place]. He states that he had nonfunctioning gallbladder but was told this was not the issue. His symptoms have been relatively minor until recently. Last week he had eaten [place] food and before leaving the restaurant had severe sharp chest and epigastric pain. He states that he thought he was having a heart attack. He presented to the emergency department and underwent rule out for cardiac etiology. He had a CT scan which reveals findings of gallstones. Patient was able to be managed as an outpatient and had been given prescription for Percocet and Zofran. He had some ongoing nausea. He had been afraid to eat. He has had some pain but it has subsided somewhat. After his seen him on Tuesday I ordered a gallbladder ultrasound to be done the morning of 02/07/17 and he was to present to the office following that. Patient states that over the weekend he had developed fever and presented to the emergency department where he was administered antibiotics and given a prescription. He states that he had some hallucinations which he attributes to the combination of the pain medication and the fever. His gallbladder ultrasound revealed gallstones with sludge and debris with minimal gallbladder wall thickening to 4 mm and normal common bile duct. Plan was made to proceed with cholecystectomy. Hospital Course Hospital Course: Patient was taken to the operating room as same day surgery patient on 02/09/17. He is found to have a severely inflamed gallbladder. There was profound inflammatory response. There was acute on chronic cholecystitis which was quite severe. Please see operative dictation for complete details. Due to findings of acute cholecystitis with some hydropic and possibly abscessed gallbladder plan was made for admission postoperatively for continuation of antibiotics. He was continued on Unasyn postoperatively. Following day he had some mild distention consistent with postoperative ileus. He was advanced to a full liquid diet. Laboratory studies including complete blood count and liver function tests were within reasonable limits. UNIQUE drain revealed serosanguineous drainage. He tolerated full liquid diet and following morning he had repeat blood work checked. This showed further normalization of slight elevation of transaminases with normal white blood cell count. He had been afebrile for greater than 24 hours. UNIQUE drain was merely serous at this time. He showed evidence of resolution of ileus. Arrangements were made for discharge home at this time. Discharge diagnoses Problem List 1. Cholecystitis, acute with cholelithiasis 2. Cholelithiasis Medications Medications: Discharge meds are as noted. Follow up Follow up in office in: 3 WEEKS with: Lucio Garces MD at 2154
[2017-02-11 10:00] VITALS: BP 136/78
== END 2017-02-11 10:25 | disposition home or self-care (01) | DRG 418 ==
LOC: SDC 09:29 → 2ND 15:09
PROVIDERS: Surgery
PROC: 0FT44ZZ Resection of Gallbladder, Percutaneous Endoscopic Approach (ICD-10-PCS; principal; 2017-02-09 11:00)
DX: K80.12 Calculus of gallbladder with acute and chronic cholecystitis without obstruction (principal); K56.7 Ileus, unspecified; K82.8 Other specified diseases of gallbladder
CPT/HCPCS: J2405; J2710